=== PATIENT | female | born 1990 | race Caucasian/White ===

== ENCOUNTER 2019-03-22 08:05 | Emergency (ER) | payer SELFPAY ==
[2019-03-22 08:44] LABS: Pregnancy Test - Urine (BHCG) Negative (Negative); Pregu Control Background? CLEAR/WHITE (CLR/WHITE); Pregu Control Bar Appear? YES (CONTROL BAR); Specific Gravity 1.025 (1.002-1.036)
== END 2019-03-22 09:10 | disposition home or self-care (01) ==
LOC: MADERS 08:05
DX: N89.8 Other specified noninflammatory disorders of vagina (principal); R10.2 Pelvic and perineal pain; J02.9 Acute pharyngitis, unspecified; R19.7 Diarrhea, unspecified; G40.909 Epilepsy, unspecified, not intractable, without status epilepticus; Z79.899 Other long term (current) drug therapy
CPT/HCPCS: 81025; 99281